=== PATIENT | female | born 1985 | race Caucasian/White ===

== ENCOUNTER 2020-07-08 14:27 | Emergency (ER) | payer SELFPAY ==
[2020-07-08] MEDS ORDERED: LIDOCAINE 1% MPF 30 ML VIAL ONE (16:27)
[2020-07-08] MEDS ORDERED: ACETAMINOPHEN 500 MG TAB ONE (16:43)
[2020-07-08] MEDS ORDERED: AMOX/K CLAV 875 MG TAB ONE (16:43)
[2020-07-08] MEDS ORDERED: TETANUS & DIPHTHERIA TOX,ADULT 0.5 ML VIAL ONE (16:43)
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
--- NOTE | 2020-07-08 16:54 | ER ---
Nurse's Notes [facility] Name: Omayra Banegas Age: 34 yrs Sex: Female : 1985 Arrival Date: 07/08/2020 Time: 14:32 Bed 8 Private MD: Diagnosis: Bitten by dog;Laceration without foreign body of nose Presentation: 07/08 14:41 Chief complaint: Patient states: Dog bite on Nose and forehead. Lac on Nose. puncture ca1 wound on Forehead between nose. Coronavirus screen: Client denies travel out of the [place] in the last 14 days. At this time, the client does not indicate any symptoms associated with coronavirus-19. Ebola Screen: Patient negative for fever greater than or equal to 101.5 degrees Fahrenheit, and additional compatible Ebola Virus Disease symptoms Patient denies exposure to infectious person. Patient denies travel to an Ebola-affected area in the 21 days before illness onset. No symptoms or risks identified at this time. Initial Sepsis Screen: Does the patient meet any 2 criteria? No. Patient's initial sepsis screen is negative. Does the patient have a suspected source of infection? No. Patient's initial sepsis screen is negative. Risk Assessment: Do you want to hurt yourself or someone else? Patient reports no desire to harm self or others. Onset of symptoms was July 08, 2020. 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 - Social history:: Smoking status: Patient denies any tobacco usage or history of. Screenin:00 Abuse screen: Denies threats or abuse. Nutritional screening: No deficits noted. aa5 Tuberculosis screening: No symptoms or risk factors identified. Fall Risk None identified. Assessment: 15:07 Reassessment: Called [facility]'s office, . Reported incident. [facility] domestic housekeeper will come to the ER. If pt leaves before deputy arrives, please call back 's office. 15:50 Reassessment: at bedside . aa5 16:00 General: Appears uncomfortable, Behavior is calm, cooperative. Pain: Complains of pain aa5 in nose Pain currently is 7 out of 10 on a pain scale. Neuro: Level of Consciousness is awake, alert, obeys commands, Oriented to person, place, time, situation. Cardiovascular: Patient's skin is warm and dry. Respiratory: Airway is patent Respiratory effort is even, unlabored, Respiratory pattern is regular, symmetrical. GI: No signs and/or symptoms were reported involving the gastrointestinal system. : No signs and/or symptoms were reported regarding the genitourinary system. EENT: No signs and/or symptoms were reported regarding the EENT system. Derm: Skin is pink, warm \\T\\ dry. Musculoskeletal: Range of motion: intact in all extremities. Injury Description: Laceration sustained to nose is clean, measuring approximately 1.5 in long. Pt reports sustained by dog bite. Pt states "I was trying to help a dog from the street and he got my nose". Gauze and tape noted to nose. is bleeding a small amount. 16:35 Reassessment: Patient is alert, oriented x 3, equal unlabored respirations, skin aa5 warm/dry/pink. 17:10 Reassessment: Patient is alert, oriented x 3, equal unlabored respirations, skin aa5 warm/dry/pink. Vital Signs: 14:41 BP 132 / 82; Pulse 97; Resp 18 S; Temp 98.9(O); Pulse Ox 99% on R/A; Weight 59.87 kg ca1 (R); Height 5 ft. 7 in. (170.18 cm) (R); Pain 7/10; 14:41 Body Mass Index 20.67 (59.87 kg, 170.18 cm) ca1 ED Course: 14:32 Patient arrived in ED. bg2 14:44 Triage completed. ca1 14:45 Arm band placed on right wrist. ca1 15:34 Sam Trinidad PA is PHCP. cp 15:34 Sam Scott MD is Attending Physician. cp 15:53 Martita Albright, TAMARA is Primary Nurse. aa5 16:05 Irrigation of laceration on nose irrigated with normal saline Patient tolerated well. dh4 Wound care: to laceration located on nose was cleaned with Hibiclens, Patient tolerated well. 16:30 Patient has correct armband on for positive identification. Bed in low position. Call aa5 light in reach. 16:35 Assist provider with laceration repair on nose that was using sutures. Set up tray. aa5 Performed by Sam WARE Patient tolerated well. 16:53 Flor Rico MD is Referral Physician. cp 17:05 Wound care: to nose laceration cleaned with saline and gauze, dressed with small amount aa5 of Neosporin, gauze, and paper tape. 17:10 Patient did not have IV access during this emergency room visit. aa5 Administered Medications: 16:35 Drug: Lidocaine (1 %) 10 ml {Note: administered to nose by PA for laceration repair.} aa5 Volume: 20 ml; Route: Infiltration; 16:40 Drug: Tetanus-Diphtheria Toxoid Adult 0.5 ml {Youth Officer: [place]. Exp: aa5 12/09/2022. Lot #: [id number]. } Route: IM; Site: left deltoid; 17:05 Follow up: Response: No adverse reaction aa5 17:05 Drug: Augmentin 875 mg Route: PO; aa5 17:10 Follow up: Response: Medication administered at discharge. aa5 17:05 Drug: Tylenol 1000 mg Route: PO; aa5 17:10 Follow up: Response: Medication administered at discharge. aa5 Outcome: 16:53 Discharge ordered by . cp 17:10 Discharged to home ambulatory. aa5 17:10 Condition: stable 17:10 Discharge instructions given to patient, Instructed on discharge instructions, follow up and referral plans. medication usage, Demonstrated understanding of instructions, follow-up care, medications, Prescriptions given X 1. 17:15 Patient left the ED. aa5 Signatures: Martita Albright RN RN aa5 Estela Marr 2 Sam Trinidad PA PA cp Valerie Boateng RN RN ca1 Niranjan Otto 4 Corrections: (The following items were deleted from the chart) 14:49 14:41 Pulse 97bpm; Resp 18bpm; Spontaneous; Pulse Ox 99% RA; Temp 98.9F Oral; 59.87 kg ca1 Reported; Height 5 ft. 7 in. Reported; BMI: 20.6; Pain 7/10; ca1 17:12 15:07 Reassessment: Called [facility]'s office, . Reported ca1 incident. Deputy sheldon will come to the ER. If pt leaves before, arrives, please call back director of occupational therapy's office ca1
[2020-07-08 17:20] VITALS: BP 132/82; TEMP 98.9; O2SAT 99
== END 2020-07-08 17:15 | disposition home or self-care (01) ==
LOC: ER 14:27
PROC: 09QKXZZ Repair Nasal Mucosa and Soft Tissue, External Approach (ICD-10-PCS; principal; 2020-07-08)
DX: S01.21XA Laceration without foreign body of nose, initial encounter (principal); W54.0XXA Bitten by dog, initial encounter; Y93.89 Activity, other specified; Y92.89 Other specified places as the place of occurrence of the external cause; Z23 Encounter for immunization
CPT/HCPCS: 90471; 90714; 99284